=== PATIENT | male | born 2000 | race African-American/Black ===

== ENCOUNTER 2021-05-28 18:33 | Emergency (ER) | payer OTHER, SELFPAY ==
[2021-05-28 19:16] VITALS: BP 137/56; PULSE 52; RESP 16; TEMP 36.4; O2SAT 98; BMI 24.4
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
--- NOTE | 2021-05-28 20:41 | PC.NURSE ---
AREA TO SHOULDER CLEANED AND BACITRACIN APPLIED.
== END 2021-05-28 20:42 | disposition home or self-care (01) ==
PROVIDERS: Emergency Provider Emergency Medicine
DX: T65.891A Toxic effect of other specified substances, accidental (unintentional), initial encounter (principal); T22.5 Corrosion of first degree of shoulder and upper limb, except wrist and hand; T32.0 Corrosions involving less than 10% of body surface; Y93.9 Activity, unspecified; Y92.9 Unspecified place or not applicable; Y99.0 Civilian activity done for income or pay
CPT/HCPCS: 16000; 99284